=== PATIENT | female | born 1960 | race Caucasian/White ===

== ENCOUNTER → 2016-07-11 | Outpatient (CLI) | payer OTHER ==
--- NOTE | 2016-07-11 13:28 | MA ---
Screening Digital Mammogram Clinical Indications: Routine screening. Technique: Standard cephalocaudal and mediolateral oblique projections are obtained. This examinati on is processed by the [employer] computer aided detection system. Comparison: May 2015, June 2012 and May 2010 Breast density: B; There are scattered fibroglandular densities. Findings: CAD was reviewed. Focal architectural distortion upper and outer left breast. The remainder the left and right breast are stable.. Impression: Architectural distortion upper outer left breast. BI-RADS 0: Needs additional imaging evaluation, upper outer left. Recommendation: Left breast- Diagnostic mammography and ultrasound at the discretion of the interpret ing radiologist. [facility] will send a result letter to the patient. Negative mammography should not preclude additional workup of a clinically suspicious finding. The patient's information is entered into a reminder system with a target due date for her next mammo gram.
== END ==
LOC: CIMAGING 10:21
DX: Z12.31 Encounter for screening mammogram for malignant neoplasm of breast (principal)
CPT/HCPCS: G0202

== ENCOUNTER → 2016-07-23 | Outpatient (CLI) | payer OTHER ==
--- NOTE | 2016-07-23 22:39 | MA ---
Diagnostic Digital Mammogram Left Breast, With iCAD Analysis Reason for Examination: Evaluate possible developing architectural change in the upper outer left br east noted on the screening study of July 11, 2016. Technique: Oblique and craniocaudal spot compression views are obtained. Also, a true lateral is pe rformed. The examination is processed by the iCAD computer-aided detection system. Comparison: Comparison is made to older studies dating back to June 2012. Findings: The abnormality does not persist on diagnostic evaluation and it was probably related to s uperimposition of normal glandular elements on the screening study. The appearance of the left breas t on diagnostic assessment is unchanged compared to the older studies. Impression: Negative diagnostic mammography. BI-RADS: 1. Recommendation: Resume routine mammographic screening in one year as long as physical examination is negative. A verbal report was given to the patient. [facility] with send a result letter.
== END ==
LOC: FIMAGING 14:53
DX: R92.8 Other abnormal and inconclusive findings on diagnostic imaging of breast (principal)
CPT/HCPCS: G0206

== ENCOUNTER → 2017-09-30 | Outpatient (CLI) | payer OTHER | LOC: CIMAGING 14:45 | PROVIDERS: ATTEND Family Medicine | DX: Z12.31 Encounter for screening mammogram for malignant neoplasm of breast (principal) ==

== ENCOUNTER → 2018-10-29 | Outpatient (CLI) | payer OTHER | LOC: EMCIMAGING 10:48 | PROVIDERS: ATTEND Family Medicine | DX: Z12.31 Encounter for screening mammogram for malignant neoplasm of breast (principal) | CPT/HCPCS: 77067-PN ==